=== PATIENT | male | born 1960 | race Caucasian/White ===

== ENCOUNTER → 2016-11-18 | Outpatient (CLI) | payer MEDICAID ==
[2016-11-18 16:13] LABS: HEMOGLOBIN 14.8 g/dL (14.1-18.0); LYMPH # 2.5 K/mm3 (0.7-4.5); LYMPH % 31.1 % (10-50)
[2016-11-18 16:42] LABS: BUN 15 mg/dL (7-18)
[2016-11-18 16:44] LABS: GFR (ESTIMATED) 100 ML/MIN (>60)
== END ==
LOC: LAB 15:49
PROVIDERS: Nurse Practitioner Family
DX: R53.83 Other fatigue (principal); J45.909 Unspecified asthma, uncomplicated; J32.0 Chronic maxillary sinusitis; M19.90 Unspecified osteoarthritis, unspecified site; Z79.899 Other long term (current) drug therapy

== ENCOUNTER → 2016-11-25 | Day surgery (SDC) | payer MEDICAID ==
[~2016-11-25] VITALS: Ht 154.9 cm; Wt 59.0 kg
[2016-11-25 10:17] VITALS: BP 150/89
[2016-11-25 10:34] VITALS: BP 150/89
[2016-11-25 10:38] VITALS: BP 153/81
--- NOTE | 2016-11-25 10:44 | Procedure Note ---
Procedure detail Date of procedure: 11/25/16 Anesthesiologist: Pancho Sehr Complications: None Pre-procedure diagnosis: Degenerative disease lumbar spine multiple levels. Lumbar facet arthropathy. Post-procedure diagnosis: Same. Indications for procedure: Very pleasant 56 or white male returns our pain clinic for a second round of medial branch block L3-4, L4-5, L5-S1. Patient complains of low back pain that he describes as constant, dull, aching. He denies radicular symptoms. Procedure detail: Informed consent was obtained and the risk and benefits of the procedure was explained to the patient. Patient was taken to the procedure room where noninvasive monitors were placed, including noninvasive blood pressure cuff as well as pulse oximeter. The area over the lumbar spine was cleansed using chlorhexidine as a cleansing solution. I anesthetized the skin and subcutaneous tissues with 1% Lidocaine. I placed 22-gauge spinal needles into the facet joint / medial branches of [L3-L4, L4-L5, and L5-S1] bilaterally. Needle placement was confirmed with fluoroscopy. After confirmation of needle placement, each site was injected with 1 mL of 1% lidocaine and 0.25 % Marcaine and 10 mg of Depo- Medrol. A total of 80 mg of depo medrol was used for bilateral medial branch blocks of [L3-L4, L4-L5, and L5-S1] bilaterally. Patient tolerated the procedure without difficulty. There were no complications. Plan and disposition: Patient was evaluated 10 minutes post procedure. He reports minimal pain in the lumbar spine in flexion, extension, LEFT and RIGHT rotation. He'll follow up in the pain clinic with us for further evaluation. at [id number]
[2016-11-25 10:50] VITALS: BP 148/88
== END ==
LOC: PM 10:00
PROC: 3E0T3BZ Introduction of Anesthetic Agent into Peripheral Nerves and Plexi, Percutaneous Approach (ICD-10-PCS; principal; 2016-11-25)
PROC: 3E0T33Z Introduction of Anti-inflammatory into Peripheral Nerves and Plexi, Percutaneous Approach (ICD-10-PCS; 2016-11-25)
PROC: BR161ZZ Fluoroscopy of Lumbar Facet Joint(s) using Low Osmolar Contrast (ICD-10-PCS; 2016-11-25)
DX: M54.06 Panniculitis affecting regions of neck and back, lumbar region (principal); M51.36 Other intervertebral disc degeneration, lumbar region